=== PATIENT | male | born 1975 | race Caucasian/White ===

== ENCOUNTER 2016-12-04 08:30 | Inpatient (IN) | payer SELFPAY ==
[~2016-12-04] VITALS: Ht 188 cm; Wt 71.1 kg
[~2016-12-04 08:30] MED LIST: DECADRON4 MG PO; HYDROCODON-ACE1 EAC7 PO
[2016-12-04 09:14] LABS: HEMATOCRIT 44.4 % (38.0-50.0); MCH 28.2 PG (29.0-34.0); MCHC 33.3 G/DL (30.0-36.0); MCV 84.6 FL (86-99); MEAN PLAT.VOLUME 9.2 uM^3 (9.0-12.4); PLATELET COUNT 570 K/uL (156-360); RBC DIS.WIDTH-CV 12.3 % (11.8-14.6); RBC DIS.WIDTH-SD 37.3 % (39-53); RED BLOOD COUNT 5.25 M/uL (4.00-5.50); WHITE BLOOD COUNT 19.6 K/uL (4.1-10.2)
[2016-12-04 09:40] LABS: ANION GAP 8 MEQ/L (2-14); CHLORIDE 97 MEQ/L (99-109); GFR ESTIMATE (CALCULATED) > 59 mL/min/; GLUCOSE 114 mg/dL (70-99); POTASSIUM 4.2 MEQ/L (3.7-5.4); SAMPLE HEMOLYSIS CHECK 0; SAMPLE ICTERIC CHECK 0; SAMPLE LIPEMIA CHECK 0; SODIUM 136 MEQ/L (136-147); UREA NITROGEN (BUN) 17 mg/dL (9-23)
[2016-12-04 10:44] VITALS: BP 156/87
[2016-12-04 19:30] VITALS: BP 156/92
[2016-12-04 21:00] VITALS: BP 117/69
[2016-12-04 22:00] VITALS: BP 117/69
[2016-12-04 22:42] LABS: METH RESISTANT S AUREUS PCR NEGATIVE (NEGATIVE)
[2016-12-04 22:43] LABS: PROBE CHECK PASS; SPECIMEN PROCESSING CONTROL PASS
[2016-12-04 23:00] VITALS: BP 141/69
[2016-12-05] VITALS (16 sets, daily range): BP systolic 119–164; BP diastolic 75–91
[2016-12-06] VITALS (9 sets, daily range): BP systolic 112–131; BP diastolic 73–84
[2016-12-06] MEDS ORDERED: DECADRON4 MG PO (08:28)
== END 2016-12-06 10:24 | disposition home or self-care (01) | DRG 27 ==
LOC: 2SOUTH 08:30 → RAD 11:00 → EDSTATUS 11:00 → 4WEST 19:12
PROVIDERS: Neurological Surgery
PROC: 00B00ZZ Excision of Brain, Open Approach (ICD-10-PCS; principal; 2016-12-04)
DX: D49.6 Neoplasm of unspecified behavior of brain (principal)
CPT/HCPCS: 70450; 77021; 80048; 85027; 87641; 88307; 88341 TC; 88342 TC; 93005; C1713; J0360; J0690; J1100; J1165; J1170; J2175; J2250; J3010; J3480; J7050

== ENCOUNTER → 2016-12-26 | Outpatient (CLI) | payer SELFPAY | END | disposition home or self-care (01) | LOC: RAD 12-25 11:00 → MRI 12-25 11:00 | DX: T88.8XXA Other specified complications of surgical and medical care, not elsewhere classified, initial encounter (principal); R90.89 Other abnormal findings on diagnostic imaging of central nervous system; Z98.890 Other specified postprocedural states | CPT/HCPCS: 70553 ==

== ENCOUNTER → 2017-04-22 | Outpatient (CLI) | payer OTHER | END | disposition home or self-care (01) | LOC: MRI 12:37 → RAD 13:30 | DX: G93.6 Cerebral edema (principal); G93.89 Other specified disorders of brain; Z98.890 Other specified postprocedural states | CPT/HCPCS: 70553 ==

== ENCOUNTER → 2017-07-08 | Outpatient (CLI) | payer OTHER | END | disposition home or self-care (01) | LOC: MRI 12:49 → RAD 13:30 | DX: C71.9 Malignant neoplasm of brain, unspecified (principal) | CPT/HCPCS: 70553 ==